=== PATIENT | female | born 1935 | race Caucasian/White ===

== ENCOUNTER → 2017-05-26 | Outpatient (CLI) | payer MEDICARE, OTHER ==
[~2017-05-26] MED LIST: ASPI325T17 PO; ATOR20TA PO; BIMA2.5D EACHEYE; DORZ10DR7 EACHEYE; HYDR12.58 PO; LEVO112T4 PO; LEVO125T5 PO; METO-99 PO; OXYC-302 PO; OXYC1TAB7 PO; SIMV40TA PO; TELM80TA PO
[2017-05-26 11:35] LABS: BASOPHILS # (AUTO) 0.03 x10^3/uL (0-0.1); BASOPHILS % (AUTO) 0 % (0-1); EOSINOPHILS % (AUTO) 3 % (1-7); LYMPHOCYTES # (AUTO) 1.74 x10^3/uL (1-3.4); LYMPHOCYTES % (AUTO) 23 % (22-44); MD NO; MEAN CORPUSCULAR HEMOGLOBIN 29.4 pg (27.0-34.8); MEAN CORPUSCULAR HGB CONC 32.8 g/dL (32.4-35.8); MEAN CORPUSCULAR VOLUME 89.5 fL (80-100); MEAN PLATELET VOLUME 8.1 fL (7.4-10.4); MONOCYTES # (AUTO) 0.72 x10^3/uL (0.2-0.8); MONOCYTES % (AUTO) 10 % (2-9); NEUTROPHILS # (AUTO) 4.78 x10^3/uL (1.8-6.8); NEUTROPHILS % (AUTO) 64 % (42-75); PLATELET COUNT 256 x10^3/uL (130-400); RED BLOOD COUNT 3.96 x10^6/uL (3.82-5.3); RED CELL DISTRIBUTION WIDTH 12.9 % (9.6-15.2)
[2017-05-26 11:41] LABS: ALBUMIN 3.7 g/dL (3.4-5.0); ANION GAP 7 mmol/L (5-15); CALCIUM 8.7 mg/dL (8.5-10.1); CHLORIDE 109 mmol/L (98-107)
[2017-05-26 11:43] LABS: ALANINE AMINOTRANSFERASE 19 U/L (12-78); ALKALINE PHOSPHATASE 55 U/L (45-117); BILIRUBIN,TOTAL 0.4 mg/dL (0.2-1.0); TOTAL PROTEIN 7.1 g/dL (6.4-8.2)
[2017-05-26 11:51] LABS: MICROSCOPIC NOT IND
[2017-05-26 11:52] LABS: CULTURE INDICATED? NO
== END | disposition home or self-care (01) ==
LOC: STAR 09:55
PROVIDERS: ATTEND Orthopaedic Surgery
DX: Z01.818 Encounter for other preprocedural examination (principal); M17.11 Unilateral primary osteoarthritis, right knee; I44.7 Left bundle-branch block, unspecified
CPT/HCPCS: 36415; 80053; 81003; 85025; 87081; 87806; 93005; G0475

== ENCOUNTER 2017-11-19 08:41 | Inpatient (IN) | payer MEDICARE, OTHER ==
[~2017-11-19] VITALS: Ht 172.7 cm; Wt 90.6 kg
[2017-11-19 09:04] LABS: BASOPHILS # (AUTO) 0.03 x10^3/uL (0-0.1); BASOPHILS % (AUTO) 0 % (0-1); EOSINOPHILS # (AUTO) 0.43 x10^3/uL (0-0.4); EOSINOPHILS % (AUTO) 4 % (1-7); LYMPHOCYTES # (AUTO) 1.03 x10^3/uL (1-3.4); LYMPHOCYTES % (AUTO) 9 % (22-44); MD NO; MEAN CORPUSCULAR HGB CONC 32.3 g/dL (32.4-35.8); MEAN CORPUSCULAR VOLUME 89.6 fL (80-100); MEAN PLATELET VOLUME 8.2 fL (7.4-10.4); MONOCYTES # (AUTO) 0.24 x10^3/uL (0.2-0.8); MONOCYTES % (AUTO) 2 % (2-9); NEUTROPHILS # (AUTO) 10.18 x10^3/uL (1.8-6.8); NEUTROPHILS % (AUTO) 86 % (42-75); PLATELET COUNT 299 x10^3/uL (130-400); RED BLOOD COUNT 4.45 x10^6/uL (3.82-5.3)
[2017-11-19 09:16] LABS: INTERNATIONAL NORMALIZED RATIO 0.97 (0.93-1.1); PROTHROMBIN TIME 10.1 Seconds (9.6-11.5)
[2017-11-19] MEDS ORDERED: ONDANSETRON 2MG/ML, 2ML ONE (09:39)
[2017-11-19] MEDS ORDERED: ONDANSETRON 2MG/ML, 2ML IVPush ONE (10:00)
[2017-11-19] MEDS ORDERED: OMNIPAQUE 350 MG/ML, 100ML BOTTLE ONE (10:28)
[2017-11-19 12:31] VITALS: BP 191/80
[2017-11-19] MEDS ORDERED: ONDANSETRON ODT 4 MG PO PRN (13:00)
[2017-11-19] MEDS ORDERED: SODIUM CHLORIDE FLUSH 10ML SYR IVF PRN (13:00)
[2017-11-19] MEDS ORDERED: morphine SULFATE 10 MG/ML, 1ML IVPush PRN (13:00)
[2017-11-19] MEDS ORDERED: ASPIRIN 325 MG TABLET PO ONE (13:00)
[2017-11-19] MEDS ORDERED: LABETALOL 5MG/ML, 20ML IVPush PRN (13:00)
[2017-11-19] MEDS ORDERED: ONDANSETRON 2MG/ML, 2ML IVPush PRN (13:00)
[2017-11-19] MEDS ORDERED: POLYETHYLENE GLYCOL 17 GM PACKET PO PRN (13:00)
[2017-11-19 13:25] LABS: THYROID STIMULATING HORMONE 0.467 mIU/L (0.358-3.740)
[2017-11-19 14:21] LABS: HEMOGLOBIN A1C 5.9 % (4.2-6.3)
[2017-11-19 14:30] VITALS: BP 196/96
[2017-11-19] MEDS: ENOXAPARIN 40 MG/0.4 ML SQ SCH (15:59)
[2017-11-19 18:06] VITALS: BP 186/81
[2017-11-19 20:38] VITALS: BP_SYST 202; BP_SYST 208; BP_DIAS 101; BP_DIAS 103
[2017-11-19] MEDS ORDERED: LOSARTAN 50MG TABLET PO SCH (21:00)
[2017-11-19 21:23] VITALS: BP 193/97
[2017-11-19] MEDS: DORZOLAMIDE OPHTH 2%, 10ML EACHEYE SCH (21:24)
[2017-11-19] MEDS: LATANOPROST OPHTH 0.005%, 2.5ML EACHEYE SCH (21:25)
[2017-11-19] MEDS: TIMOLOL OPHTH 0.5%, 5ML OP SCH (21:25)
[2017-11-19] MEDS: ATORVASTATIN 80 MG TABLET PO SCH (21:25)
[2017-11-19 22:30] VITALS: BP 215/111
[2017-11-19] MEDS ORDERED: hydrALAzine 20 MG/ML, 1ML IV ONE (22:30)
[2017-11-19 23:45] LABS: MICROSCOPIC NOT IND
[2017-11-19 23:48] LABS: CULTURE INDICATED? NO
[2017-11-20] VITALS (9 sets, daily range): BP systolic 153–192; BP diastolic 90–112
[2017-11-20] MEDS: ASPIRIN 81 MG TABLET EC PO SCH (05:29)
[2017-11-20 05:41] LABS: BASOPHILS # (AUTO) 0.01 x10^3/uL (0-0.1); BASOPHILS % (AUTO) 0 % (0-1); EOSINOPHILS # (AUTO) 0.06 x10^3/uL (0-0.4); EOSINOPHILS % (AUTO) 1 % (1-7); LYMPHOCYTES # (AUTO) 1.11 x10^3/uL (1-3.4); LYMPHOCYTES % (AUTO) 9 % (22-44); MD NO; MEAN CORPUSCULAR HGB CONC 33.6 g/dL (32.4-35.8); MEAN CORPUSCULAR VOLUME 89.5 fL (80-100); MEAN PLATELET VOLUME 8.8 fL (7.4-10.4); MONOCYTES # (AUTO) 0.57 x10^3/uL (0.2-0.8); MONOCYTES % (AUTO) 5 % (2-9); NEUTROPHILS # (AUTO) 10.71 x10^3/uL (1.8-6.8); NEUTROPHILS % (AUTO) 86 % (42-75); PLATELET COUNT 305 x10^3/uL (130-400); RED BLOOD COUNT 4.29 x10^6/uL (3.82-5.3); RED CELL DISTRIBUTION WIDTH 12.8 % (9.6-15.2)
[2017-11-20 05:50] LABS: CHLORIDE 100 mmol/L (98-107)
[2017-11-20 06:02] LABS: ALANINE AMINOTRANSFERASE 15 U/L (12-78); ALBUMIN 3.7 g/dL (3.4-5.0); ALKALINE PHOSPHATASE 114 U/L (45-117); ANION GAP 9 mmol/L (5-15); BILIRUBIN,TOTAL 0.6 mg/dL (0.2-1.0); CALCIUM 9.1 mg/dL (8.5-10.1); CHOL/HDL RATIO 3.3; CHOLESTEROL, TOTAL 153 mg/dL (140-239); CREATININE 0.82 mg/dL (0.55-1.02); HDL CHOL % 31 % (28-40); HDL CHOLESTEROL (DIRECT) 47 mg/dL (40-60); LDL CHOLESTEROL,CALCULATED 91 mg/dL (54-169); LDL/HDL RATIO 1.9 (0.5-3.0); TOTAL PROTEIN 7.6 g/dL (6.4-8.2); TRIGLYCERIDES 74 mg/dL (50-200); VLDL CHOLESTEROL 15 mg/dL (0-25)
[2017-11-20] MEDS ORDERED: LABETALOL 5MG/ML, 20ML IVPush PRN ×2 (08:30→12:30)
[2017-11-20] MEDS: DORZOLAMIDE OPHTH 2%, 10ML EACHEYE SCH ×2 (09:21→20:31)
[2017-11-20] MEDS: TIMOLOL OPHTH 0.5%, 5ML OP SCH ×2 (09:21→20:32)
[2017-11-20] MEDS: LEVOTHYROXINE 125 MCG TABLET PO SCH (09:21)
[2017-11-20] MEDS: CLOPIDOGREL 75 MG TABLET PO SCH (09:21)
[2017-11-20] MEDS: SENNA/DOCUSATE TABLET PO SCH (09:21)
[2017-11-20] MEDS: ENOXAPARIN 40 MG/0.4 ML SQ SCH (16:19)
[2017-11-20] MEDS: METOPROLOL TARTRATE 50 MG TABLET PO SCH (17:59)
[2017-11-20] MEDS: LOSARTAN 50MG TABLET PO SCH (20:26)
[2017-11-20] MEDS: LATANOPROST OPHTH 0.005%, 2.5ML EACHEYE SCH (20:31)
[2017-11-20] MEDS: ATORVASTATIN 80 MG TABLET PO SCH (20:33)
[2017-11-21 01:34] VITALS: BP 168/90
[2017-11-21] MEDS: METOPROLOL TARTRATE 50 MG TABLET PO SCH ×2 (05:55→17:36)
[2017-11-21] MEDS: ASPIRIN 81 MG TABLET EC PO SCH (05:55)
[2017-11-21] MEDS: LEVOTHYROXINE 125 MCG TABLET PO SCH (05:55)
[2017-11-21 07:19] VITALS: BP 163/93
[2017-11-21] MEDS: CLOPIDOGREL 75 MG TABLET PO SCH (08:03)
[2017-11-21] MEDS: DORZOLAMIDE OPHTH 2%, 10ML EACHEYE SCH ×2 (08:03→20:50)
[2017-11-21] MEDS: SENNA/DOCUSATE TABLET PO SCH (08:03)
[2017-11-21] MEDS: TIMOLOL OPHTH 0.5%, 5ML OP SCH ×2 (08:03→20:50)
[2017-11-21] MEDS ORDERED: ASPI-621 PO (11:55)
[2017-11-21] MEDS ORDERED: METO50TA82 PO (11:55)
[2017-11-21] MEDS ORDERED: CLOP75TA PO (11:55)
[2017-11-21] MEDS ORDERED: AMLO5TAB4 PO (11:55)
[2017-11-21] MEDS ORDERED: ATOR-2 PO (11:55)
[2017-11-21] MEDS ORDERED: LOSA50TA2 PO (11:55)
[2017-11-21 12:37] VITALS: BP 185/107
[2017-11-21 14:58] VITALS: BP 156/83
[2017-11-21] MEDS ORDERED: ENALAPRILAT 1.25 MG/ML, 2ML IV PRN (15:00)
[2017-11-21 17:34] VITALS: BP 161/80
[2017-11-21] MEDS: ENOXAPARIN 40 MG/0.4 ML SQ SCH (17:36)
[2017-11-21 19:01] VITALS: BP_SYST 170; BP_SYST 172; BP_DIAS 104; BP_DIAS 90
[2017-11-21] MEDS: ATORVASTATIN 80 MG TABLET PO SCH (20:49)
[2017-11-21] MEDS: LOSARTAN 50MG TABLET PO SCH (20:49)
[2017-11-21] MEDS: AMLODIPINE 5 MG TABLET PO SCH (20:49)
[2017-11-21] MEDS: LATANOPROST OPHTH 0.005%, 2.5ML EACHEYE SCH (20:50)
[2017-11-22 02:36] VITALS: BP 147/78
[2017-11-22] MEDS: ASPIRIN 81 MG TABLET EC PO SCH (05:22)
[2017-11-22] MEDS: LEVOTHYROXINE 125 MCG TABLET PO SCH (05:25)
[2017-11-22] MEDS: METOPROLOL TARTRATE 50 MG TABLET PO SCH (05:25)
[2017-11-22 07:19] VITALS: BP 138/72
[2017-11-22] MEDS: CLOPIDOGREL 75 MG TABLET PO SCH (07:46)
[2017-11-22] MEDS: SENNA/DOCUSATE TABLET PO SCH (07:46)
[2017-11-22] MEDS: AMLODIPINE 5 MG TABLET PO SCH (07:46)
[2017-11-22] MEDS: DORZOLAMIDE OPHTH 2%, 10ML EACHEYE SCH (07:47)
[2017-11-22] MEDS: TIMOLOL OPHTH 0.5%, 5ML OP SCH (07:47)
== END 2017-11-22 11:52 | DRG 65 ==
LOC: ED 09:03 → EDIP 11:38 → 4WST 12:23
PROVIDERS: ADMIT Internal Medicine; ATTEND Internal Medicine
DX: I63.9 Cerebral infarction, unspecified (principal); G93.40 Encephalopathy, unspecified; Z87.891 Personal history of nicotine dependence; Z88.6 Allergy status to analgesic agent; Z88.1 Allergy status to other antibiotic agents; I16.0 Hypertensive urgency; I10 Essential (primary) hypertension; E78.5 Hyperlipidemia, unspecified; H40.9 Unspecified glaucoma; I69.320 Aphasia following cerebral infarction; E03.9 Hypothyroidism, unspecified; D72.829 Elevated white blood cell count, unspecified; Z79.82 Long term (current) use of aspirin; Z79.899 Other long term (current) drug therapy; Z82.49 Family history of ischemic heart disease and other diseases of the circulatory system; Z96.643 Presence of artificial hip joint, bilateral; Z96.652 Presence of left artificial knee joint; Z98.42 Cataract extraction status, left eye; Z98.41 Cataract extraction status, right eye; R73.9 Hyperglycemia, unspecified
CPT/HCPCS: 36415; 70450; 70496; 70498; 70551; 71045; 80047; 80053; 80061; 81003; 82962; 83036; 83735; 84100; 84443; 85025; 85610; 85730; 93005; 93306; 93880; 99285; G0378; J1650; Q9967; 92523-GN; J0360